=== PATIENT | male | born 1985 | race Caucasian/White ===

== ENCOUNTER → 2019-03-13 | Outpatient (CLI) | payer BC ==
[~2019-03-13] MED LIST: PROTONIX40 M1 IV
== END ==
LOC: COL.RAD 07:53
DX: R10.13 Epigastric pain (principal); R19.7 Diarrhea, unspecified; R11.0 Nausea

== ENCOUNTER → 2019-03-23 | Outpatient (REF) | LOC: COL.CARD 11:43 | DX: Z01.818 Encounter for other preprocedural examination (principal) ==

== ENCOUNTER → 2021-03-03 | Outpatient (CLI) | payer BC | LOC: ZCOL.LAB 17:29 | DX: J34.89 Other specified disorders of nose and nasal sinuses (principal); R61 Generalized hyperhidrosis; Z20.822 Contact with and (suspected) exposure to COVID-19 ==